=== PATIENT | male | born 1950 | race Caucasian/White ===

== ENCOUNTER 2022-01-04 08:45 | Day surgery (SDC) | payer OTHER ==
[2022-01-04] MEDS: LACTATED RINGERS 1,000 ML IV SCH ×2 (09:04→10:15)
[2022-01-04 09:07] VITALS: TEMP 97.2
[2022-01-04] MEDS ORDERED: PROPOFOL 10 MG/ML 20 ML VIAL IV ONE (10:16)
--- NOTE | 2022-01-04 10:45 | P.PCN ---
Date of Procedure: 01/04/22 Procedure(s) Performed: BRIEF HISTORY: Patient is a 71-year-old pleasant male scheduled for an elective colonoscopy as a part of evaluation of positive cologuard/Screening for colon cancer PROCEDURE PERFORMED: Colonoscopy snare polypectomy. PREOPERATIVE DIAGNOSIS: Positive cologuard/Screening for colon cancer. IV sedation per Anesthesia. PROCEDURE: After informed consent was obtained, the patient, was brought into the endoscopy unit. IV sedation was administered by Anesthesia under continuous monitoring. Digital rectal examination was normal. Initially the Olympus CF-160 flexible video colonoscope was then inserted in the rectum, gradually advanced into the cecum without any difficulty. Careful examination was performed as the scope was gradually being withdrawn. Ileocecal valve and the appendiceal orifice were visualized and appeared normal. Prep was excellent. Mucosa of the cecum, a 1 cm broad-based polyp removed by snare polypectomy. Rest of the ascending colon, transverse colon, appeared normal. The colon there was a 5 mm polyp removed by snare polypectomy. In the sigmoid colon there was a 5 mm and 1 cm polyp removed by snare polypectomy. Scattered sigmoid diverticulosis. Rest of the descending colon, sigmoid colon, and rectum appeared normal. Retroflexion was performed in the rectum and no lesions were seen. The patient tolerated the procedure well. IMPRESSION: 1 cm cecal polyp status post polypectomy 5 mm descending colon polyp status post polypectomy 5 mm and 1 cm sigmoid colon polyp status post polypectomy Scattered sigmoid diverticulosis RECOMMENDATIONS: Findings of this examination were discussed with the patient varices family. He was advised to follow with the biopsy results. If the biopsy result adenoma he can have a repeat colonoscopy in 3 years..
[2022-01-04 11:07] VITALS: BP 150/89; PULSE 69; RESP 16
== END 2022-01-04 11:23 | disposition home or self-care (01) ==
LOC: ORWHC2ENDO 08:45
PROVIDERS: ATTEND Internal Medicine Gastroenterology
DX: Z12.11 Encounter for screening for malignant neoplasm of colon (principal); D12.5 Benign neoplasm of sigmoid colon; D12.4 Benign neoplasm of descending colon; I10 Essential (primary) hypertension; E78.5 Hyperlipidemia, unspecified; Z79.899 Other long term (current) drug therapy
CPT/HCPCS: 88305; 45385; J2704